=== PATIENT | male | born 1960 | race Caucasian/White ===

== ENCOUNTER 2018-12-09 00:02 | Emergency (ER) | payer MEDICAID ==
[~2018-12-09] VITALS: Ht 167.6 cm; Wt 83.9 kg
[~2018-12-09 00:02] MED LIST: ALLO300T2 PO; AMLO10TA4 PO; AMLO1CAP9 PO; ASPI-605 PO; ATOR20TA PO; BENA20TA9 PO; CLON0.1T PO; GEMF600T5 PO; LOSA100T31 PO; METF-441 PO; METO-357 PO; NITR0.4T48 SL; PANT40TA4 PO; PHEN-894 PO; TAMS0.4C34 PO; TRAZ-182 PO; ZOLP10TA6 PO
--- NOTE | 2018-12-09 00:12 | NUR ---
Pt comes to ER with family member with c/o high systolic blood pressure reading in the 180s while at home. BP 165/77 upon triage. Denies chest pain/shortness of breath. Denies dizziness/headache. Pt has no other complaints or symptoms. States he was frequently checking his BP at home, states took his BP meds at 2100 earlier today. No acute distress noted.
--- NOTE | 2018-12-09 00:17 | NUR ---
Dr. Oswaldo BROUSSARD MD at bedside to evaluate pt.
[2018-12-09] MEDS ORDERED: CARV12.52 PO (00:25)
[2018-12-09] MEDS ORDERED: CLON0.1T14 PO (00:27)
[2018-12-09] MEDS ORDERED: TAMS-3 PO (00:27)
[2018-12-09] MEDS ORDERED: AMLO5TAB9 PO (00:27)
[2018-12-09] MEDS ORDERED: ATOR40TA PO (00:27)
[2018-12-09] MEDS ORDERED: PANT40TA4 PO (00:31)
[2018-12-09] MEDS ORDERED: ASPI-605 PO (00:31)
[2018-12-09] MEDS ORDERED: ERGO500040 PO (00:31)
[2018-12-09] MEDS ORDERED: GLIM2TAB2 PO (00:31)
[2018-12-09] MEDS ORDERED: CAND1TAB18 PO (00:31)
[2018-12-09] MEDS ORDERED: METF-442 PO (00:31)
--- NOTE | 2018-12-09 00:36 | NUR ---
Patient discharged to home in stable conditon. Written and verbal after care instructions given. Patient verbalizes understanding of instructions.
[2018-12-09 00:41] VITALS: BP 152/70
== END 2018-12-09 00:42 | disposition home or self-care (01) ==
LOC: ER 00:05
DX: I10 Essential (primary) hypertension (principal); Z71.6 Tobacco abuse counseling; E78.00 Pure hypercholesterolemia, unspecified; E11.9 Type 2 diabetes mellitus without complications; F17.290 Nicotine dependence, other tobacco product, uncomplicated; Z79.82 Long term (current) use of aspirin; Z79.899 Other long term (current) drug therapy
CPT/HCPCS: 93005; A4663

== ENCOUNTER 2021-03-07 05:58 | Emergency (ER) | payer MEDICAID ==
[~2021-03-07] VITALS: Ht 165.1 cm; Wt 77.1 kg
[~2021-03-07 05:58] MED LIST changes: -ALLO300T2 PO; +AMLO-212 PO; -AMLO10TA4 PO; -AMLO1CAP9 PO; -ATOR20TA PO; +ATOR40TA PO; -BENA20TA9 PO; +CAND1TAB18 PO; +CARV12.52 PO; -CLON0.1T PO; +CLON0.1T14 PO; +ERGO500040 PO; -GEMF600T5 PO; +GLIM2TAB31 PO; -LOSA100T31 PO; -METF-441 PO; +METF-442 PO; -METO-357 PO; -NITR0.4T48 SL; -PANT40TA4 PO; +PANT40TA49 PO; -PHEN-894 PO; +TAMS-3 PO; -TAMS0.4C34 PO; -TRAZ-182 PO; -ZOLP10TA6 PO
--- NOTE | 2021-03-07 06:10 | NUR ---
MD Geller in room to do MSE.
[2021-03-07] MEDS ORDERED: EPINEPHRINE-PF 1:1000 1 MG/ML AMPUL SQ ONE (06:15)
[2021-03-07] MEDS ORDERED: SILVER NITRATE APPLICATOR STICK EACH TP ONE ×2 (06:15→06:20)
[2021-03-07] MEDS ORDERED: EPINEPHRINE 1 MG/1 ML AMP ONE (06:22)
[2021-03-07 06:27] LABS: HEMATOCRIT 36.9 % (36.7-47.1); MEAN CORPUSCULAR HEMOGLOBIN 28.7 uug (23.8-33.4); MEAN CORPUSCULAR VOLUME 86.1 fL (73.0-96.2); PLATELET COUNT (AUTO) 217 K/uL (152-348)
[2021-03-07 06:39] LABS: CREATININE 2.3 mg/dL (0.6-1.3); POTASSIUM 4.2 mmol/L (3.5-5.1)
[2021-03-07 06:40] VITALS: BP 154/74
--- NOTE | 2021-03-07 06:40 | NUR ---
Patient discharged to home in stable condition. Written and verbal after care instructions given. Patient verbalizes understanding of instructions. Stressed follow up or return to ER for worsening s/s. Patient ambulates with steady gait, V/S stable, and left with all personal belongings.
== END 2021-03-07 06:40 | disposition home or self-care (01) ==
LOC: ER 06:00
DX: L76.22 Postprocedural hemorrhage of skin and subcutaneous tissue following other procedure (principal); E11.22 Type 2 diabetes mellitus with diabetic chronic kidney disease; N18.9 Chronic kidney disease, unspecified; Z79.84 Long term (current) use of oral hypoglycemic drugs; E78.00 Pure hypercholesterolemia, unspecified; Z79.899 Other long term (current) drug therapy; Z82.49 Family history of ischemic heart disease and other diseases of the circulatory system; Z83.3 Family history of diabetes mellitus
CPT/HCPCS: 12011; 36415; 80048; 85025; 85610; 85730; 99283; J0171; A4663

== ENCOUNTER 2021-12-01 11:29 | Emergency (ER) | payer MEDICAID ==
[~2021-12-01] VITALS: Ht 167.6 cm; Wt 88.5 kg
[2021-12-01] MEDS ORDERED: HYDR50TA4 PO (11:44)
[2021-12-01] MEDS ORDERED: PIOG45TA5 PO (11:44)
[2021-12-01] MEDS ORDERED: OMEG1CAP PO (11:44)
[2021-12-01] MEDS ORDERED: BENA20TA9 PO (11:44)
[2021-12-01] MEDS ORDERED: ACET-2605 PO (11:44)
[2021-12-01] MEDS ORDERED: VIT1TABL46 PO (11:44)
[2021-12-01] MEDS ORDERED: ROSU20TA2 PO (11:44)
[2021-12-01] MEDS ORDERED: AMLO10TA59 PO (11:44)
[2021-12-01] MEDS ORDERED: ASPIRIN 325 MG TABLET PO ONE (12:00)
[2021-12-01] MEDS ORDERED: NITROGLYCERIN 0.4 MG/TAB BOTTLE SL ONE ×2 (12:00→12:03)
[2021-12-01] MEDS ORDERED: ASPIRIN 325 MG TABLET ONE (12:03)
[2021-12-01 12:14] LABS: HEMATOCRIT 32.6 % (36.7-47.1); MEAN CORPUSCULAR HEMOGLOBIN 29.4 uug (23.8-33.4); MEAN CORPUSCULAR VOLUME 85.6 fL (73.0-96.2); PLATELET COUNT (AUTO) 182 K/uL (152-348)
[2021-12-01 12:19] LABS: CARBON DIOXIDE 25 mmol/L (21-32); CHLORIDE 99 mmol/L (98-107); CREATININE 2.6 mg/dL (0.6-1.3); POTASSIUM 4.4 mmol/L (3.5-5.1); UREA NITROGEN, BLOOD 28 mg/dL (7-18)
[2021-12-01 12:20] LABS: GLUCOSE 311 mg/dL (74-106)
--- NOTE | 2021-12-01 12:22 | NUR ---
cp subsided after 3 nitro sublingual.
[2021-12-01] MEDS ORDERED: NITROGLYCERIN OINT 1 GM PACKET TP ONE ×2 (12:29→12:45)
[2021-12-01 12:38] LABS: ALANINE AMINOTRANSFERASE 29 U/L (16-63); ALKALINE PHOSPHATASE 53 U/L (50-136); ASPARTATE AMINOTRANSFERASE 35 U/L (15-37); BILIRUBIN,DIRECT 0.1 mg/dL (0.0-0.2); BILIRUBIN,TOTAL 0.6 mg/dL (0.2-1.0); TOTAL PROTEIN, SERUM 6.6 g/dL (6.4-8.2)
[2021-12-01 12:45] VITALS: BP 131/77
--- NOTE | 2021-12-01 13:23 | NUR ---
CALLED DR. MAE, [facility], AND LEFT A MESSAGE.
[2021-12-01] MEDS ORDERED: HEPARIN/D5W 25000 UNITS/500 ML BAG IV ONE (14:00)
[2021-12-01] MEDS ORDERED: HEPARIN SODIUM,PORCINE/PF 100 UNIT/ML, 5ML SYR XX ONE (14:00)
[2021-12-01] MEDS ORDERED: HEPARIN/D5W DRIP 500 ML ONE (14:06)
[2021-12-01] MEDS ORDERED: HEPARIN SODIUM,PORCINE 5,000 UNITS/ML VIAL ONE (14:06)
--- NOTE | 2021-12-01 14:15 | NUR ---
COMMUNICATED WITH [facility] REGARDING THE TRANSFER OF THE PT. THE ADMITTING MD IS DR. LOPEZ, CARDIOLOGYWHO TALKED TO DR. AHUMADA IS DR. CHUNG. REQUESTED INFO FAXED TO [phone], , [facility] WILL ARRANGE FOR CCCT TRANSFER.
--- NOTE | 2021-12-01 17:12 | NUR ---
[facility] CALLED WITH THE FOLLOWING INFO: PT WILL BE GOING TO [facility], REPORT NUMBER [phone]. ETA FOR CCCT TRANSFER STILL PENDING.
--- NOTE | 2021-12-01 18:00 | NUR ---
Received telephone call from Abbi from [facility] who stated she has been unable to find CCT or ALS transport for transport to [facility] and she will continue to look for transport. notified.
--- NOTE | 2021-12-01 18:00 | NUR ---
TEMITOPE, contact info for Abbi at [facility]: .
--- NOTE | 2021-12-01 18:15 | NUR ---
Called [facility] and [facility] who stated no ALS transport available.
--- NOTE | 2021-12-01 18:33 | NUR ---
ENOCH AND I UNABLE TO FIND ANY CCRT OR ACLS AMBULANCE ANY TIME SOONER THAN TOMORROW 0900 WITH [facility]. WILL TRY TO SEE IF WE CAN FIND ANYTHING SOONER.
--- NOTE | 2021-12-01 18:55 | NUR ---
CALLED [facility] PER PT'S SON REFERRAL AT [phone], ETA 2 HRS.
--- NOTE | 2021-12-01 22:00 | NUR ---
[facility] arrived to ER to transport patient to [facility], report and documentation given to EMT.
--- NOTE | 2021-12-01 22:34 | NUR ---
Gave report to [facility]. all questions answered, RN provided with return phone number should she have anymore questions
== END 2021-12-01 21:57 | disposition short-term general hospital (02) ==
LOC: ER 11:29
DX: I21.4 Non-ST elevation (NSTEMI) myocardial infarction (principal); Z20.822 Contact with and (suspected) exposure to COVID-19; N28.9 Disorder of kidney and ureter, unspecified; D64.9 Anemia, unspecified; E11.65 Type 2 diabetes mellitus with hyperglycemia; E78.00 Pure hypercholesterolemia, unspecified; Z86.16 Personal history of COVID-19
CPT/HCPCS: 36415; 71045; 80048; 80076; 83880; 84484 ×2; 85025; 85379; 85730 ×2; 87426; 93005 ×2; 96374; 99291; J1644 ×2; A4663; J7040

== ENCOUNTER 2022-08-07 22:14 | Emergency (ER) | payer MEDICAID ==
[~2022-08-07] VITALS: Ht 167.6 cm; Wt 90.7 kg
[~2022-08-07 22:14] MED LIST changes: +ACET-2605 PO; -AMLO-212 PO; +AMLO10TA59 PO; -ATOR40TA PO; +BENA20TA9 PO; -CAND1TAB18 PO; -CLON0.1T14 PO; -GLIM2TAB31 PO; +HYDR50TA4 PO; -METF-442 PO; +OMEG1CAP PO; -PANT40TA49 PO; +PIOG45TA5 PO; +ROSU20TA2 PO; -TAMS-3 PO; +VIT1TABL46 PO
[2022-08-07] MEDS ORDERED: CLON1PAT2 TD (22:29)
[2022-08-07] MEDS ORDERED: DAPA10TA PO (22:45)
[2022-08-07] MEDS ORDERED: NITR0.4T SL (22:45)
[2022-08-07] MEDS ORDERED: CLOP75TA15 PO (22:45)
[2022-08-07] MEDS ORDERED: FENO48TA6 PO (22:45)
[2022-08-07] MEDS ORDERED: CARV25TA2 PO (22:45)
[2022-08-07] MEDS ORDERED: NIFE-35 PO (22:45)
[2022-08-07] MEDS ORDERED: AMLO1TAB15 PO (22:45)
[2022-08-07] MEDS ORDERED: HYDR-4075 PO (22:45)
== END 2022-08-08 02:00 | disposition left against medical advice (07) ==
LOC: ER 22:15
DX: Z53.21 Procedure and treatment not carried out due to patient leaving prior to being seen by health care provider (principal)